=== PATIENT | female | born 1965 ===

== ENCOUNTER 2017-05-17 07:27 | Day surgery (SDC) | payer MEDICARE, MEDICAID ==
[2016-04-27 11:32] VITALS: BMI 30.7
[2017-05-17 07:57] VITALS: TEMP 98
[2017-05-17] MEDS ORDERED: Lactated Ringer's 500 ML IV SCH (08:45)
[2017-05-17] MEDS ORDERED: Propofol 10 mg/ml Inj (20 ML) ONE (09:03)
--- NOTE | 2017-05-17 09:04 | CP.SDSHP ---
Same Day Surgery H & P - History Proposed Procedure: colonoscopy - Previous Medical/Surgical History Endocrine/Metabolic: Thyroid Disease Previous Surgical History: Gastric sleeve Csection x3 - Allergies Allergies: Allergies No Known Allergies Allergy (Verified 12/22/12 10:18) - Physical Exam Vital Signs: Vital Signs 05/17/17 07:47 Temperature 98 F Pulse Rate 60 Respiratory 18 Rate Blood Pressure 182/95 H O2 Sat by Pulse 99 Oximetry - Date & Time Date: 05/17/17 Time: 09:04 Short Stay Discharge - Short Stay Discharge Admitting Diagnosis/Reason for Visit: SCREENING Disposition: HOME/ ROUTINE
[2017-05-17 10:59] VITALS: O2SAT 100
[2017-05-17 11:06] VITALS: BP 150/90; PULSE 55; RESP 20
== END 2017-05-17 10:55 | disposition home or self-care (01) ==
LOC: C.ENDO 07:27
PROVIDERS: ATTEND Colon & Rectal Surgery
DX: D12.2 Benign neoplasm of ascending colon (principal); K64.8 Other hemorrhoids; K57.90 Diverticulosis of intestine, part unspecified, without perforation or abscess without bleeding
CPT/HCPCS: 45388; 88305; J2704; J3010; J7120